=== PATIENT | female | born 1980 | race African-American/Black ===

== ENCOUNTER 2019-10-08 08:36 | Emergency (ER) | payer MEDICAID ==
[~2019-10-08] VITALS: Ht 162.6 cm; Wt 78.0 kg
[2019-10-08 11:31] LABS: BASOPHILS % 0.8 % (0.0-2.0); EOSINOPHILS % 4.8 % (0.0-5.0); HEMOGLOBIN. 11.7 g/dL (12.0-16.0); LYMPHOCYTES % 30.6 % (20.0-50.0); MEAN CORPUSCULAR HEMOGLOBIN 30.3 pg (28.0-32.0); MEAN CORPUSCULAR VOLUME 90.6 fL (81.0-99.0); MEAN PLATELET VOLUME 7.4 fl (7.4-10.4); MONOCYTES % 9.2 % (2.0-8.0); NEUTROPHILS % 54.6 % (40.0-76.0); PLATELET 308 x1000/uL (130-400); RED BLOOD CELL COUNT 3.86 mill/uL (4.2-5.4); RED CELL DISTRIBUTION WIDTH 13.8 % (11.6-14.6)
[2019-10-08 11:38] LABS: CHLORIDE 105 mEq/L (98-107)
[2019-10-08 12:52] VITALS: BP 159/98
== END 2019-10-08 13:14 | disposition home or self-care (01) ==
LOC: ER 08:36
DX: J06.9 Acute upper respiratory infection, unspecified (principal); R07.89 Other chest pain; I10 Essential (primary) hypertension; Z76.0 Encounter for issue of repeat prescription; Z98.890 Other specified postprocedural states; Z90.710 Acquired absence of both cervix and uterus; Z87.891 Personal history of nicotine dependence
CPT/HCPCS: 36415; 80048; 85025; 99283